=== PATIENT | female | born 1950 | race Caucasian/White ===

== ENCOUNTER 2016-09-25 08:47 | Day surgery (SDC) | payer MEDICARE, BC ==
--- NOTE | ~2016-09-25 | EGD ---
EGD REPORT [facility] [address] [place] [address] NAME: JORGE GARCÍA : [birth year] STATUS : REG [facility]#: [id number] AGE: 66 ADM/REG DATE : 09/25/16 MR#: [id number] REPORT SERV DATE: 09/25/16 DICTATED BY: EMILY GARVEY DATE: 09/25/16 REPORT STATUS : Draft [facility]ANS[facility]IBED BY: [facility] DATE: 09/25/16 [facility] Patient Name: Jorge García Date of : 1950 Attending MD: EMILY GARVEY MD Procedure Date No Time: 09/25/2016 Procedure: Colonoscopy Indications: Iron deficiency anemia, Follow-up of colitis, Constipation, Last colonoscopy within the past 6 months Referring MD: FELICIA REID Medicines: See the Anesthesia note for documentation of the administered medications Complications: No immediate complications. Procedure: Pre-Anesthesia Assessment: - ASA Grade Assessment: III - A patient with severe systemic disease. After I obtained informed consent, the scope was passed under direct vision. Throughout the procedure, the patient's blood pressure, pulse, and oxygen saturations were monitored continuously. The CF [id number] was introduced through the anus and advanced to the cecum, identified by appendiceal orifice and ileocecal valve. The colonoscopy was performed without difficulty. The patient tolerated the procedure well. The quality of the bowel preparation was fair. Findings: The perianal and digital rectal examinations were normal. Internal hemorrhoids were found during retroflexion. Impression: - Internal hemorrhoids. Recommendation: - Patient has a contact number available for emergencies. The signs and symptoms of potential delayed complications were discussed with the patient. Return to normal activities tomorrow. Written discharge instructions were provided to the patient. - Regular diet. - Continue present medications. - Repeat colonoscopy in 1 year because the bowel preparation was suboptimal. - Office visit in 2 months Procedure Code(s): --- Professional --- 29774, Colonoscopy, flexible, proximal to splenic EGD REPORT [facility] [address] [place] [address] [address] [facility] [address] NAME: JORGE GARCÍA : [birth year] STATUS : REG [facility]#: [id number] AGE: 66 ADM/REG DATE : 09/25/16 MR#: [id number] REPORT SERV DATE: 09/25/16 DICTATED BY: EMILY GARVEY DATE: 09/25/16 REPORT STATUS : Draft TRANSCRIBED BY: [employer] DATE: 09/25/16 flexure; diagnostic, with or without collection of specimen(s) by brushing or washing, with or without colon decompression (separate procedure) Diagnosis Code(s): --- Professional --- K64.8, Other hemorrhoids D50.9, Iron deficiency anemia, unspecified K52.9, Noninfective gastroenteritis and colitis, unspecified K59.00, Constipation, unspecified CPT copyright 2013 [employer]. All rights reserved. The codes documented in this report are preliminary and upon logging specialist review may be revised to meet current compliance requirements. Emily Garvey MD EMILY GARVEY MD 09/25/2016 10:14 AM This report has been signed electronically. Number of Addenda: 0 Note Initiated On: 09/25/2016 9:35 AM Scope Withdrawal Time 0 hours 11 minutes 8 seconds [address] [place] [address]
[~2016-09-25 08:47] MED LIST: ADVAIR250 INH; ALBUTEROL5 INH; ASAB PO; CARDCD240 PO; CORDARONE PO; DEMA20 PO; ELIQUIS 5 MG TAB5 MG PO; FERROUS SULF324 MG PO; FERROUS SULF325 M1 PO; FLAG500TAB PO; K-PHOS 500 MG500 MG PO; KLOR-CON 1010 MEQ PO; L40 PO; LEVAQUIN750 MG PO; LEVOTHYROXIN88 MCG PO; LIPITOR40 PO; MYCELEX TROCHE10 MG PO; NEUR100 PO; NITROQUICK0.4 MG SL; NORCO1 TAB PO; NORV5 PO; P20 PO; PCET PO; PLAVIX PO; PRIN10 PO; PROAIR HFA INH; PROTONIX PO; PROVENTSOL INH; QUESLITE PO; QUESTRAN4 GM PO; SPIRIVA INH; TENORETIC1 TAB PO; ULTRAM50 PO; ZOFRAN4 PO
[2016-09-25 09:05] LABS: BASOPHILS 1.2 %; EOSINOPHILS 2.6 %; EOSINOPHILS ABSOLUTE 0.21 10/3/uL (0.0-0.53); HEMATOCRIT 32.8 % (36.0-48.0); HEMOGLOBIN 10.4 g/dL (12.0-16.0); IMMATURE GRANULOCYTES 0.1 %; IMMATURE GRANULOCYTES ABSOLUTE 0.01 10/3/uL (0.0-0.11); LYMPHOCYTES 16.7 %; LYMPHOCYTES ABSOLUTE 1.37 10/3/uL (0.67-4.30); MANUAL DIFF NO %; MEAN CORPUS HGB CONC 31.7 g/dL (32.0-36.0); MEAN CORPUSCULAR HEMOGLOB 27.4 pg (26.0-34.0); MEAN CORPUSCULAR VOLUME 86.3 fL (80-100); MEAN PLATELET VOLUME 8.5 fL (9.2-13.0); MONOCYTES 10.1 %; MONOCYTES ABSOLUTE 0.83 10/3/uL (0.21-1.20); NEUTROPHILS 69.3 %; NEUTROPHILS ABSOLUTE 5.66 10/3/uL (2.02-8.40); PLATELET COUNT 253 10/3/uL (150-400); RBC DISTRIBUTION WIDTH 16.9 % (12.0-16.0); WHITE BLOOD CELLS 8.2 10/3/uL (4.5-10.5)
== END 2016-09-25 23:59 | disposition home health service (06) ==
LOC: DMU 08:47
PROVIDERS: Internal Medicine Gastroenterology
PROC: 0DJD8ZZ Inspection of Lower Intestinal Tract, Via Natural or Artificial Opening Endoscopic (ICD-10-PCS; principal; 2016-09-25 08:30)
DX: K64.8 Other hemorrhoids (principal); D50.9 Iron deficiency anemia, unspecified; K52.9 Noninfective gastroenteritis and colitis, unspecified; I50.9 Heart failure, unspecified; J44.9 Chronic obstructive pulmonary disease, unspecified; E03.9 Hypothyroidism, unspecified; K21.9 Gastro-esophageal reflux disease without esophagitis; I25.10 Atherosclerotic heart disease of native coronary artery without angina pectoris; M19.90 Unspecified osteoarthritis, unspecified site; F17.210 Nicotine dependence, cigarettes, uncomplicated; Z88.0 Allergy status to penicillin; Z98.51 Tubal ligation status; Z79.899 Other long term (current) drug therapy; Z98.890 Other specified postprocedural states
CPT/HCPCS: 85025